=== PATIENT | female | born 1955 ===

== ENCOUNTER 2021-03-02 09:40 | Emergency (ER) | payer OTHER ==
[~2021-03-02] VITALS: Ht 160 cm; Wt 78.5 kg
[2021-03-02] MEDS ORDERED: COZAAR100 MG (09:56)
[2021-03-02] MEDS ORDERED: TOPROL XL25 M1 (09:57)
[2021-03-02] MEDS ORDERED: PANTOPRAZOLE SO40 M2 (09:58)
[2021-03-02] MEDS ORDERED: ROSUVASTATIN CAL5 MG (09:58)
== END 2021-03-02 15:42 | disposition home or self-care (01) ==
LOC: ER 09:40
DX: R10.31 Right lower quadrant pain (principal)